=== PATIENT | female | born 1990 | race Caucasian/White ===

== ENCOUNTER → 2018-02-18 | Outpatient (CLI) | payer OTHER ==
[~2018-02-18] MED LIST: NORCO 325 MG-51 TAB PO; ZOFRAN ODT4 MG PO
== END ==
LOC: COL.RAD 10:22
DX: R16.1 Splenomegaly, not elsewhere classified (principal); R11.2 Nausea with vomiting, unspecified

== ENCOUNTER → 2018-02-23 | Outpatient (CLI) | payer OTHER | LOC: MC.RAD 14:08 | DX: N64.59 Other signs and symptoms in breast (principal); N63.11 Unspecified lump in the right breast, upper outer quadrant ==